=== PATIENT | male | born 1940 | race Two or more races ===

== ENCOUNTER 2020-08-08 10:53 | Inpatient (IN) | payer OTHER ==
[~2020-08-08] VITALS: Ht 182.9 cm; Wt 68.0 kg
[2020-08-08] MEDS ORDERED: ELIQUIS5 MG PO (11:06)
== END 2020-08-10 21:12 | disposition home or self-care (01) | DRG 179 ==
LOC: ER 10:53 → MEDJ 20:42
PROVIDERS: ADMIT Internal Medicine; ATTEND Internal Medicine
PROC: 3E0F7SF Introduction of Other Gas into Respiratory Tract, Via Natural or Artificial Opening (ICD-10-PCS; 2020-08-08)
PROC: CB2YYZZ Tomographic (Tomo) Nuclear Medicine Imaging of Respiratory System using Other Radionuclide (ICD-10-PCS; 2020-08-08)
PROC: 8E0ZXY6 Isolation (ICD-10-PCS; principal; 2020-08-09)
PROC: 4A033R1 Measurement of Arterial Saturation, Peripheral, Percutaneous Approach (ICD-10-PCS; 2020-08-09)
PROC: 4A12X4Z Monitoring of Cardiac Electrical Activity, External Approach (ICD-10-PCS; 2020-08-09)
DX: U07.1 COVID-19 (principal); I48.0 Paroxysmal atrial fibrillation; Z79.01 Long term (current) use of anticoagulants; G30.8 Other Alzheimer's disease; F02.80 Dementia in other diseases classified elsewhere, unspecified severity, without behavioral disturbance, psychotic disturbance, mood disturbance, and anxiety; I69.318 Other symptoms and signs involving cognitive functions following cerebral infarction; R09.02 Hypoxemia

== ENCOUNTER 2020-08-12 12:04 | Inpatient (IN) | payer OTHER ==
[~2020-08-12] VITALS: Ht 172.7 cm; Wt 78.0 kg
[~2020-08-12 12:04] MED LIST: ELIQUIS5 MG PO
[2020-08-12] MEDS ORDERED: CEFDINIR300 MG (12:29)
[2020-08-12] MEDS ORDERED: ECPIRIN325 MG (12:30)
[2020-08-12] MEDS ORDERED: LATANOPROST 0.7.5 ML (12:30)
[2020-08-12] MEDS ORDERED: ABATINEX680 MG (12:31)
[2020-08-12] MEDS ORDERED: VITAMIN C500 M6 (12:32)
[2020-08-12] MEDS ORDERED: OPTIMAL D31250 MCG (12:32)
[2020-08-12] MEDS ORDERED: ZINC GLUCONATE100 MG (12:33)
[2020-08-12] MEDS ORDERED: PROAIR DIGIHAL90 MCG (12:34)
[2020-08-15] MEDS ORDERED: CLONAZEPAM0.5 MG (08:28)
[2020-08-15] MEDS ORDERED: CARBIDOPA-LEVO1 EA10 (08:28)
[2020-08-15] MEDS ORDERED: ELIQUIS5 MG (08:28)
[2020-08-15] MEDS ORDERED: LATANOPROST2.5 ML (08:28)
[2020-08-15] MEDS ORDERED: METOPROLOL SUCC25 MG (08:29)
[2020-08-15] MEDS ORDERED: PANTOPRAZOLE SO40 MG (08:29)
[2020-08-15] MEDS ORDERED: MEMANTINE HCL10 MG (08:29)
[2020-08-15] MEDS ORDERED: ATORVASTATIN CA10 MG (08:29)
[2020-08-15] MEDS ORDERED: GALANTAMINE HBR8 MG (08:29)
== END 2020-09-03 04:00 | disposition expired | DRG 207 ==
LOC: ER 12:04 → MEDJ 23:10 → ICU-2 23:10 → ICU 08-20 03:54
PROVIDERS: ADMIT Internal Medicine; ATTEND Internal Medicine
PROC: CB2YYZZ Tomographic (Tomo) Nuclear Medicine Imaging of Respiratory System using Other Radionuclide (ICD-10-PCS; 2020-08-12)
PROC: 4A033R1 Measurement of Arterial Saturation, Peripheral, Percutaneous Approach (ICD-10-PCS; 2020-08-13)
PROC: 8E0ZXY6 Isolation (ICD-10-PCS; 2020-08-13)
PROC: 3E0F7SF Introduction of Other Gas into Respiratory Tract, Via Natural or Artificial Opening (ICD-10-PCS; 2020-08-13)
PROC: 4A12X4Z Monitoring of Cardiac Electrical Activity, External Approach (ICD-10-PCS; 2020-08-13)
PROC: 5A1955Z Respiratory Ventilation, Greater than 96 Consecutive Hours (ICD-10-PCS; principal; 2020-08-16)
PROC: 0BH17EZ Insertion of Endotracheal Airway into Trachea, Via Natural or Artificial Opening (ICD-10-PCS; 2020-08-16)
PROC: 02H633Z Insertion of Infusion Device into Right Atrium, Percutaneous Approach (ICD-10-PCS; 2020-08-16)
PROC: B24BZZZ Ultrasonography of Heart with Aorta (ICD-10-PCS; 2020-08-16)
PROC: 30233N1 Transfusion of Nonautologous Red Blood Cells into Peripheral Vein, Percutaneous Approach (ICD-10-PCS; 2020-08-18)
DX: U07.1 COVID-19 (principal); J12.89 Other viral pneumonia; J96.01 Acute respiratory failure with hypoxia; R65.21 Severe sepsis with septic shock; A41.9 Sepsis, unspecified organism; N17.8 Other acute kidney failure; G30.8 Other Alzheimer's disease; F02.80 Dementia in other diseases classified elsewhere, unspecified severity, without behavioral disturbance, psychotic disturbance, mood disturbance, and anxiety; I48.0 Paroxysmal atrial fibrillation; Z79.01 Long term (current) use of anticoagulants; I69.318 Other symptoms and signs involving cognitive functions following cerebral infarction; J43.8 Other emphysema; Z21 Asymptomatic human immunodeficiency virus [HIV] infection status; G20 Parkinson's disease